=== PATIENT | male | born 1990 | race American Indian/Alaskan Native ===

== ENCOUNTER 2021-05-01 00:57 | Emergency (ER) | payer SELFPAY ==
--- NOTE | 2021-05-01 01:05 | Emergency Department Report ---
<JAJA PEGUERO - Last Filed: 05/01/21 06:46> ED Altered Mental Status HPI - General Stated Complaint: SEVERE ANXIETY Time Seen by Provider: 05/01/21 00:59 - Related Data Allergies Allergy/AdvReac Type Severity Reaction Status Date / Time egg Allergy Unknown Verified 05/01/21 01:06 ED Course - Reevaluation(s) Reevaluation #1: 05/01/21 06:46 Patient now is alert, oriented x3 in no acute distress. Patient is playing with his iPhone. - Lab Data Result diagrams: 05/01/21 01:12 05/01/21 01:12 ED Disposition Clinical Impression: Acute drug intoxication Disposition: HOME / SELF CARE / HOMELESS Condition: Stable Instructions: Substance Use Disorder Referrals: BORIS KNAPP MD [Staff Physician] - 3-5 Days <GRIFFIN ROSADO - Last Filed: 05/02/21 06:30> ED Altered Mental Status HPI - General PUI?: No Source: patient, EMS Limitations: Altered Mental Status - History of Present Illness Initial Comments: CC: "I feel like my heart is going to beat out of my chest." HPI: 30-year-old male with history of asthma, anxiety presents with chest pain. Patient admits to drinking alcohol and smoking marijuana today. He also took "a little blue pill". Patient's heart rate ranged from 100-160 per EMS. Patient states that he sees his heart attempting to come out of his chest. He is trying to hold his heart down. Complaint: altered mental status, other (Anxious paranoid delusional) -: This evening Severity: severe Context: alcohol abuse, drug abuse Associated Symptoms: other (Chest pain palpitations) ED Review of Systems ROS: Stated complaint: SEVERE ANXIETY Other details as noted in HPI Comment: Unobtainable due to pts medical conditions (Altered mental status) ED Past Medical Hx - Past Medical History Previous Medical History?: Yes Hx Psychiatric Treatment: Yes (Anxiety) Hx Asthma: Yes - Social History Substance Use Type: Alcohol, Marijuana ED Physical Exam - General General appearance: alert, anxious, other (Agitated anxious jerking movement hyperverbal) - Head Head exam: Present: atraumatic, normocephalic - Eye Eye exam: Present: normal appearance - ENT ENT exam: Present: mucous membranes moist - Neck Neck exam: Present: normal inspection, full ROM - Respiratory Respiratory exam: Present: normal lung sounds bilaterally. Absent: respiratory distress, wheezes, rales, rhonchi - Cardiovascular Cardiovascular Exam: Present: normal rhythm, tachycardia, normal heart sounds. Absent: systolic murmur, diastolic murmur, rubs, gallop - GI/Abdominal GI/Abdominal exam: Present: soft, normal bowel sounds. Absent: distended, tenderness, guarding, rebound - Rectal Rectal exam: Present: deferred - Extremities Exam Extremities exam: Present: normal inspection - Neurological Exam Neurological exam: Present: alert, other (Oriented to name and place) - Psychiatric Psychiatric exam: Present: agitated, anxious, other (Hyperverbal paranoid asking the paramedics to hold down his chest) - Skin Skin exam: Present: warm, dry, intact, normal color. Absent: rash ED Course Vital Signs 05/01/21 05/01/21 05/01/21 01:04 01:40 01:46 Temperature 98.1 F Pulse Rate 131 H 123 H 123 H Respiratory 22 22 17 Rate Blood Pressure Blood Pressure 159/104 [Right] O2 Sat by Pulse 99 93 100 Oximetry 05/01/21 05/01/21 05/01/21 02:00 02:16 02:30 Temperature Pulse Rate 116 H 95 H 95 H Respiratory 35 H 16 16 Rate Blood Pressure Blood Pressure [Right] O2 Sat by Pulse 100 100 Oximetry 05/01/21 05/01/21 05/01/21 02:46 03:00 03:16 Temperature Pulse Rate 95 H 97 H 102 H Respiratory 17 17 16 Rate Blood Pressure 130/88 130/88 Blood Pressure [Right] O2 Sat by Pulse 100 100 100 Oximetry 05/01/21 05/01/21 05/01/21 03:30 03:46 04:00 Temperature Pulse Rate Respiratory 15 14 15 Rate Blood Pressure 130/88 130/88 130/88 Blood Pressure [Right] O2 Sat by Pulse 100 100 100 Oximetry 05/01/21 05/01/21 05/01/21 04:16 04:30 04:46 Temperature Pulse Rate Respiratory 14 14 13 Rate Blood Pressure 130/88 130/88 130/88 Blood Pressure [Right] O2 Sat by Pulse 99 99 99 Oximetry 05/01/21 05/01/21 05/01/21 05:00 05:16 05:30 Temperature Pulse Rate Respiratory 13 14 15 Rate Blood Pressure 130/88 130/88 130/88 Blood Pressure [Right] O2 Sat by Pulse 100 100 99 Oximetry 05/01/21 05/01/21 05:46 07:19 Temperature Pulse Rate Respiratory 13 Rate Blood Pressure 130/88 Blood Pressure [Right] O2 Sat by Pulse 99 99 Oximetry - Lab Data Result diagrams: 05/01/21 01:12 05/01/21 01:12 Lab Results 05/01/21 05/01/21 05/01/21 Range/Units 01:12 01:12 01:12 WBC 5.8 (4.5-11.0) K/mm3 RBC 4.75 (3.65-5.03) M/mm3 Hgb 14.8 (11.8-15.2) gm/dl Hct 45.2 (35.5-45.6) % MCV 95 H (84-94) fl MCH 31 (28-32) pg MCHC 33 (32-34) % RDW 14.5 (13.2-15.2) % Plt Count 365 (140-440) K/mm3 Lymph % (Auto) 27.1 (13.4-35.0) % Cowley % (Auto) 10.8 H (0.0-7.3) % Eos % (Auto) 1.8 (0.0-4.3) % Baso % (Auto) 0.9 (0.0-1.8) % Lymph # (Auto) 1.6 (1.2-5.4) K/mm3 Cowley # (Auto) 0.6 (0.0-0.8) K/mm3 Eos # (Auto) 0.1 (0.0-0.4) K/mm3 Baso # (Auto) 0.1 (0.0-0.1) K/mm3 Seg Neutrophils % 59.4 (40.0-70.0) % Seg Neutrophils # 3.4 (1.8-7.7) K/mm3 Sodium 139 (137-145) mmol/L Potassium 3.7 (3.6-5.0) mmol/L Chloride 98.9 (98-107) mmol/L Carbon Dioxide 21 L (22-30) mmol/L Anion Gap 23 mmol/L BUN 7 L (9-20) mg/dL Creatinine 1.1 (0.8-1.3) mg/dL Estimated GFR > 60 ml/min BUN/Creatinine Ratio 6 % Glucose 92 (75-100) mg/dL Calcium 9.5 (8.4-10.2) mg/dL Total Bilirubin 1.30 H (0.1-1.2) mg/dL AST 21 (5-40) units/L ALT 21 (7-56) units/L Alkaline Phosphatase 81 (35-129) units/L Troponin T (0.00-0.029) ng/mL Total Protein 8.2 (6.3-8.2) g/dL Albumin 5.1 H (3.9-5) g/dL Albumin/Globulin Ratio 1.6 % Urine Color (Yellow) Urine Turbidity (Clear) Urine pH (5.0-7.0) Ur Specific Williams (1.003-1.030) Urine Protein (Negative) mg/dL Urine Glucose (UA) (Negative) mg/dL Urine Ketones (Negative) mg/dL Urine Blood (Negative) Urine Nitrite (Negative) Urine Bilirubin (Negative) Urine Urobilinogen (<2.0) mg/dL Ur Leukocyte Esterase (Negative) Urine WBC (Auto) (0.0-6.0) /HPF Urine RBC (Auto) (0.0-6.0) /HPF Urine Mucus /HPF Salicylates < 0.3 L (2.8-20.0) mg/dL Urine Opiates Screen Urine Methadone Screen Acetaminophen (10.0-30.0) ug/mL Ur Barbiturates Screen Ur Phencyclidine Scrn Ur Amphetamines Screen U Benzodiazepines Scrn Urine Cocaine Screen U Marijuana (THC) Screen Drugs of Abuse Note Plasma/Serum Alcohol (0-0.07) % 05/01/21 05/01/21 05/01/21 Range/Units 01:12 01:12 01:12 WBC (4.5-11.0) K/mm3 RBC (3.65-5.03) M/mm3 Hgb (11.8-15.2) gm/dl Hct (35.5-45.6) % MCV (84-94) fl MCH (28-32) pg MCHC (32-34) % RDW (13.2-15.2) % Plt Count (140-440) K/mm3 Lymph % (Auto) (13.4-35.0) % Cowley % (Auto) (0.0-7.3) % Eos % (Auto) (0.0-4.3) % Baso % (Auto) (0.0-1.8) % Lymph # (Auto) (1.2-5.4) K/mm3 Cowley # (Auto) (0.0-0.8) K/mm3 Eos # (Auto) (0.0-0.4) K/mm3 Baso # (Auto) (0.0-0.1) K/mm3 Seg Neutrophils % (40.0-70.0) % Seg Neutrophils # (1.8-7.7) K/mm3 Sodium (137-145) mmol/L Potassium (3.6-5.0) mmol/L Chloride (98-107) mmol/L Carbon Dioxide (22-30) mmol/L Anion Gap mmol/L BUN (9-20) mg/dL Creatinine (0.8-1.3) mg/dL Estimated GFR ml/min BUN/Creatinine Ratio % Glucose (75-100) mg/dL Calcium (8.4-10.2) mg/dL Total Bilirubin (0.1-1.2) mg/dL AST (5-40) units/L ALT (7-56) units/L Alkaline Phosphatase (35-129) units/L Troponin T < 0.010 (0.00-0.029) ng/mL Total Protein (6.3-8.2) g/dL Albumin (3.9-5) g/dL Albumin/Globulin Ratio % Urine Color (Yellow) Urine Turbidity (Clear) Urine pH (5.0-7.0) Ur Specific Williams (1.003-1.030) Urine Protein (Negative) mg/dL Urine Glucose (UA) (Negative) mg/dL Urine Ketones (Negative) mg/dL Urine Blood (Negative) Urine Nitrite (Negative) Urine Bilirubin (Negative) Urine Urobilinogen (<2.0) mg/dL Ur Leukocyte Esterase (Negative) Urine WBC (Auto) (0.0-6.0) /HPF Urine RBC (Auto) (0.0-6.0) /HPF Urine Mucus /HPF Salicylates (2.8-20.0) mg/dL Urine Opiates Screen Urine Methadone Screen Acetaminophen 5.0 L (10.0-30.0) ug/mL Ur Barbiturates Screen Ur Phencyclidine Scrn Ur Amphetamines Screen U Benzodiazepines Scrn Urine Cocaine Screen U Marijuana (THC) Screen Drugs of Abuse Note Plasma/Serum Alcohol < 0.01 (0-0.07) % 05/01/21 05/01/21 Range/Units 08:13 08:13 WBC (4.5-11.0) K/mm3 RBC (3.65-5.03) M/mm3 Hgb (11.8-15.2) gm/dl Hct (35.5-45.6) % MCV (84-94) fl MCH (28-32) pg MCHC (32-34) % RDW (13.2-15.2) % Plt Count (140-440) K/mm3 Lymph % (Auto) (13.4-35.0) % Cowley % (Auto) (0.0-7.3) % Eos % (Auto) (0.0-4.3) % Baso % (Auto) (0.0-1.8) % Lymph # (Auto) (1.2-5.4) K/mm3 Cowley # (Auto) (0.0-0.8) K/mm3 Eos # (Auto) (0.0-0.4) K/mm3 Baso # (Auto) (0.0-0.1) K/mm3 Seg Neutrophils % (40.0-70.0) % Seg Neutrophils # (1.8-7.7) K/mm3 Sodium (137-145) mmol/L Potassium (3.6-5.0) mmol/L Chloride (98-107) mmol/L Carbon Dioxide (22-30) mmol/L Anion Gap mmol/L BUN (9-20) mg/dL Creatinine (0.8-1.3) mg/dL Estimated GFR ml/min BUN/Creatinine Ratio % Glucose (75-100) mg/dL Calcium (8.4-10.2) mg/dL Total Bilirubin (0.1-1.2) mg/dL AST (5-40) units/L ALT (7-56) units/L Alkaline Phosphatase (35-129) units/L Troponin T (0.00-0.029) ng/mL Total Protein (6.3-8.2) g/dL Albumin (3.9-5) g/dL Albumin/Globulin Ratio % Urine Color Yellow (Yellow) Urine Turbidity Clear (Clear) Urine pH 5.0 (5.0-7.0) Ur Specific Williams 1.020 (1.003-1.030) Urine Protein 30 mg/dl (Negative) mg/dL Urine Glucose (UA) Neg (Negative) mg/dL Urine Ketones 20 (Negative) mg/dL Urine Blood Neg (Negative) Urine Nitrite Neg (Negative) Urine Bilirubin Neg (Negative) Urine Urobilinogen 2.0 (<2.0) mg/dL Ur Leukocyte Esterase Neg (Negative) Urine WBC (Auto) 9.0 H (0.0-6.0) /HPF Urine RBC (Auto) 5.0 (0.0-6.0) /HPF Urine Mucus Few /HPF Salicylates (2.8-20.0) mg/dL Urine Opiates Screen Negative Urine Methadone Screen Negative Acetaminophen (10.0-30.0) ug/mL Ur Barbiturates Screen Negative Ur Phencyclidine Scrn Negative Ur Amphetamines Screen Positive U Benzodiazepines Scrn Negative Urine Cocaine Screen Positive U Marijuana (THC) Screen Positive Drugs of Abuse Note Disclamer Plasma/Serum Alcohol (0-0.07) % - EKG Data -: EKG Interpreted by Mo EKG shows normal: sinus rhythm, axis, intervals, QRS complexes, ST-T waves Rate: tachycardia 05/01/21 01:25 EKG obtained 0110 EKG interpreted by mn Sinus tachycardia rate 120 bpm normal axis normal intervals no ST-T sign ischemia - Medical Decision Making Acute intoxication, patient presented with paranoia agitation anxiety. Admitted to multiple ingestions including smoking a substance and taking a "blue pill". After 2 mg of lorazepam he is now resting comfortably. Tachycardia has resol rhina. Anticipate discharge once he is awake. My colleague will arrange discharge disposition once he is awake and ambulatory. CBC chemistry serum toxicology all unremarkable patient received 2 mg IV lorazepam normal saline 1 L bolus Critical Care Time: Yes Critical care time in (mins) excluding proc time.: 40 Critical care attestation.: If time is entered above; I have spent that time in minutes in the direct care of this critically ill patient, excluding procedure time. 40 minutes of critical care time excluding procedures were used in the care of the patient. I came immediately to the bedside upon patient's arrival. I obtained history from EMS at the bedside. I discussed treatment plan with the nursing team members. I reviewed electronic record. I was concerned for arrhythmia with severe tachycardia. I was concerned for potential self-harm with patient's impulsive. ED Disposition Is pt being admited?: No Does the pt Need Aspirin: No
[2021-05-01] MEDS ORDERED: SODIUM CHLORIDE 0.9% 1000 ML 1,000 ML ONE (01:27)
[2021-05-01 01:38] LABS: Basophils # (Auto) 0.1 K/mm3 (0.0-0.1); Basophils % (Auto) 0.9 % (0.0-1.8); Eosinophils # (Auto) 0.1 K/mm3 (0.0-0.4); Eosinophils % (Auto) 1.8 % (0.0-4.3); Hematocrit 45.2 % (35.5-45.6); Hemoglobin 14.8 gm/dl (11.8-15.2); Lymphocytes # (Auto) 1.6 K/mm3 (1.2-5.4); Lymphocytes % (Auto) 27.1 % (13.4-35.0); Mean Corpuscular HGB Conc 33 % (32-34); Mean Corpuscular Volume 95 fl (84-94); Monocytes # (Auto) 0.6 K/mm3 (0.0-0.8); Monocytes % (Auto) 10.8 % (0.0-7.3); Platelet Count 365 K/mm3 (140-440); Red Blood Count 4.75 M/mm3 (3.65-5.03); Red Cell Distribution Width 14.5 % (13.2-15.2)
[2021-05-01] MEDS ORDERED: SODIUM CHLORIDE 0.9% 1000 ML 1,000 ML IV ONE (01:40)
[2021-05-01] MEDS ORDERED: LORazepam 2 MG/ML VIAL IV ONE (01:43)
[2021-05-01 01:49] LABS: Alanine Aminotransferase 21 units/L (7-56); Albumin 5.1 g/dL (3.9-5); BUN/Creatinine Ratio 6; Blood Urea Nitrogen 7 mg/dL (9-20); Calcium 9.5 mg/dL (8.4-10.2); Hemolysis Index 40
[2021-05-01 05:58] VITALS: BP 130/88
[2021-05-01 09:06] LABS: Bilirubin,Urine NEG (Negative); Blood,Urine NEG (Negative); Color,Urine Yellow (Yellow); Mucus,Urine FEW /HPF
[2021-05-01 09:10] LABS: Benzodiazepines Screen,Urine Negative; Methadone Screen,Urine Negative; Opiate Screen,Urine Negative
[2021-05-01 09:46] LABS: Amphetamine Screen,Urine Positive; Cannabinoid Screen,Urine Positive; Cocaine Screen,Urine Positive
--- NOTE | 2021-05-03 18:56 | Electrocardiograph Report ---
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
== END 2021-05-01 10:46 | disposition home or self-care (01) ==
LOC: ED 00:57
DX: F12.929 Cannabis use, unspecified with intoxication, unspecified (principal); F41.9 Anxiety disorder, unspecified; R07.89 Other chest pain; J45.909 Unspecified asthma, uncomplicated; Z72.89 Other problems related to lifestyle; Z79.899 Other long term (current) drug therapy
CPT/HCPCS: 36415; 80053; 80307; 81001; 84484; 85025; 87086; 93005; 96361; 96374; 99284; J2060; J7030; 80320; G0480

== ENCOUNTER 2021-06-18 07:25 | Emergency (ER) | payer SELFPAY ==
[2021-06-18 07:33] VITALS: BP 148/98
--- NOTE | 2021-06-18 08:22 | Emergency Department Report ---
ED Chest Pain HPI - General Chief Complaint: Arrhythmia/Palpitations Stated Complaint: HEART COMPLICATIONS Source: patient Mode of arrival: Ambulatory Limitations: No Limitations - History of Present Illness Initial Comments: 30-year-old -[place] male Severity scale (0 -10): 8 - Related Data Allergies Allergy/AdvReac Type Severity Reaction Status Date / Time egg Allergy Unknown Verified 05/01/21 01:06 ED Review of Systems ROS: Stated complaint: HEART COMPLICATIONS Other details as noted in HPI ED Past Medical Hx - Past Medical History Hx Psychiatric Treatment: Yes (Anxiety) Hx Asthma: Yes - Surgical History Additional Surgical History: nasal - Social History Substance Use Type: Alcohol, Marijuana ED Physical Exam - General Limitations: No Limitations ED Course Vital Signs 06/18/21 07:29 Temperature 98.2 F Pulse Rate 105 H Respiratory 20 Rate Blood Pressure 148/98 [Right] O2 Sat by Pulse 95 Oximetry Critical care attestation.: If time is entered above; I have spent that time in minutes in the direct care of this critically ill patient, excluding procedure time. ED Disposition Condition: Stable
--- NOTE | 2021-06-18 12:54 | Electrocardiograph Report ---
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
== END 2021-06-18 09:05 | disposition left against medical advice (07) ==
LOC: ED 07:25
DX: R07.89 Other chest pain (principal); R06.02 Shortness of breath; F41.9 Anxiety disorder, unspecified
CPT/HCPCS: 93005; 99282

== ENCOUNTER 2021-06-21 04:28 | Emergency (ER) | payer MEDICARE, MEDICAID ==
--- NOTE | 2021-06-21 08:09 | XRay Report ---
CHEST PA AND LATERAL VIEWS INDICATION: chest pain. COMPARISON: None. FINDINGS: Support devices: None. Heart: Within normal limits. Lungs/Pleura: No acute pulmonary or pleural findings. IMPRESSION: 1. No acute findings. Signer Name: Donovan Owusu MD Signed: 06/21/2021 8:05 AM Workstation Name: [id number]
--- NOTE | 2021-06-21 08:24 | Emergency Department Report ---
ED General Adult HPI - General Chief complaint: Psych Stated complaint: HEART ISSUES Time Seen by Provider: 06/21/21 07:44 Source: patient Mode of arrival: Ambulatory Limitations: No Limitations - History of Present Illness Initial comments: 30-year-old -Ug[place] male patient presents with complaints of crawling feeling in his chest for the past few days. Patient admits to substance abuse, however were not disclosed what substance he has used. He denies any chest pain, shortness of breath, cough, hemoptysis, or fever/chills/sweats. Patient reports that he is to be admitted to a snf house today and as needed to get medically cleared. No past medical history per patient. - Related Data Previous Rx's Medication Instructions Recorded Last Taken Type Naproxen 500 mg PO BID PRN #20 tablet 06/21/21 Unknown Rx Allergies Allergy/AdvReac Type Severity Reaction Status Date / Time egg Allergy Unknown Verified 06/21/21 04:50 ED Review of Systems ROS: Stated complaint: HEART ISSUES Other details as noted in HPI Constitutional: denies: chills, diaphoresis, fever, malaise, weakness Respiratory: denies: cough, shortness of breath Cardiovascular: as per HPI. denies: palpitations Gastrointestinal: denies: abdominal pain, nausea Skin: denies: rash Neurological: denies: numbness, paresthesias ED Past Medical Hx - Past Medical History Hx Psychiatric Treatment: Yes (Anxiety) Hx Asthma: Yes - Surgical History Additional Surgical History: nasal - Social History Substance Use Type: Alcohol, Marijuana - Medications Home Medications: Home Medications Medication Instructions Recorded Confirmed Last Taken Type Naproxen 500 mg PO BID PRN #20 tablet 06/21/21 Unknown Rx ED Physical Exam - General Limitations: No Limitations General appearance: alert, in no apparent distress - Head Head exam: Present: atraumatic, normocephalic - Eye Eye exam: Present: normal appearance - Neck Neck exam: Present: normal inspection - Respiratory Respiratory exam: Present: normal lung sounds bilaterally. Absent: respiratory distress, chest wall tenderness - Cardiovascular Cardiovascular Exam: Present: regular rate, normal rhythm - Extremities Exam Extremities exam: Absent: calf tenderness (no swelling noted) - Neurological Exam Neurological exam: Present: alert, oriented X3, normal gait - Psychiatric Psychiatric exam: Present: normal affect, normal mood ED Course Vital Signs 06/21/21 06/21/21 06/21/21 04:50 08:49 08:52 Temperature 98.6 F 98.0 F Pulse Rate 103 H 88 Respiratory 18 17 17 Rate Blood Pressure 129/88 133/72 [Right] O2 Sat by Pulse 100 96 97 Oximetry 06/21/21 09:49 Temperature Pulse Rate 87 Respiratory 18 Rate Blood Pressure 133/79 [Right] O2 Sat by Pulse 100 Oximetry ED Medical Decision Making - Lab Data Result diagrams: 06/21/21 08:15 06/21/21 08:15 Lab Results 06/21/21 06/21/21 06/21/21 Range/Units 08:15 08:15 08:15 WBC 5.7 (4.5-11.0) K/mm3 RBC 4.76 (3.65-5.03) M/mm3 Hgb 15.0 (11.8-15.2) gm/dl Hct 47.1 H (35.5-45.6) % MCV 99 H (84-94) fl MCH 32 (28-32) pg MCHC 32 (32-34) % RDW 14.6 (13.2-15.2) % Plt Count 371 (140-440) K/mm3 Lymph % (Auto) 33.1 (13.4-35.0) % Sutter % (Auto) 8.8 H (0.0-7.3) % Eos % (Auto) 2.7 (0.0-4.3) % Baso % (Auto) 0.6 (0.0-1.8) % Lymph # (Auto) 1.9 (1.2-5.4) K/mm3 Sutter # (Auto) 0.5 (0.0-0.8) K/mm3 Eos # (Auto) 0.2 (0.0-0.4) K/mm3 Baso # (Auto) 0.0 (0.0-0.1) K/mm3 Seg Neutrophils % 54.8 (40.0-70.0) % Seg Neutrophils # 3.1 (1.8-7.7) K/mm3 Sodium 138 (137-145) mmol/L Potassium 4.0 (3.6-5.0) mmol/L Chloride 100.6 (98-107) mmol/L Carbon Dioxide 23 (22-30) mmol/L Anion Gap 18 mmol/L BUN 8 L (9-20) mg/dL Creatinine 0.9 (0.8-1.3) mg/dL Estimated GFR > 60 ml/min BUN/Creatinine Ratio 9 % Glucose 84 (75-100) mg/dL Calcium 9.5 (8.4-10.2) mg/dL Total Bilirubin 0.80 (0.1-1.2) mg/dL AST 19 (5-40) units/L ALT 21 (7-56) units/L Alkaline Phosphatase 79 (35-129) units/L Troponin T < 0.010 (0.00-0.029) ng/mL Total Protein 7.6 (6.3-8.2) g/dL Albumin 5.1 H (3.9-5) g/dL Albumin/Globulin Ratio 2.0 % Urine Color (Yellow) Urine Turbidity (Clear) Urine pH (5.0-7.0) Ur Specific [place] (1.003-1.030) Urine Protein (Negative) mg/dL Urine Glucose (UA) (Negative) mg/dL Urine Ketones (Negative) mg/dL Urine Blood (Negative) Urine Nitrite (Negative) Urine Bilirubin (Negative) Urine Urobilinogen (<2.0) mg/dL Ur Leukocyte Esterase (Negative) Urine WBC (Auto) (0.0-6.0) /HPF Urine RBC (Auto) (0.0-6.0) /HPF U Epithel Cells (Auto) (0-13.0) /HPF Urine Mucus /HPF Salicylates (2.8-20.0) mg/dL Urine Opiates Screen Urine Methadone Screen Acetaminophen (10.0-30.0) ug/mL Ur Barbiturates Screen Ur Phencyclidine Scrn Ur Amphetamines Screen U Benzodiazepines Scrn Urine Cocaine Screen U Marijuana (THC) Screen Drugs of Abuse Note Plasma/Serum Alcohol (0-0.07) % 06/21/21 06/21/21 06/21/21 Range/Units 08:15 08:15 08:15 WBC (4.5-11.0) K/mm3 RBC (3.65-5.03) M/mm3 Hgb (11.8-15.2) gm/dl Hct (35.5-45.6) % MCV (84-94) fl MCH (28-32) pg MCHC (32-34) % RDW (13.2-15.2) % Plt Count (140-440) K/mm3 Lymph % (Auto) (13.4-35.0) % Sutter % (Auto) (0.0-7.3) % Eos % (Auto) (0.0-4.3) % Baso % (Auto) (0.0-1.8) % Lymph # (Auto) (1.2-5.4) K/mm3 Sutter # (Auto) (0.0-0.8) K/mm3 Eos # (Auto) (0.0-0.4) K/mm3 Baso # (Auto) (0.0-0.1) K/mm3 Seg Neutrophils % (40.0-70.0) % Seg Neutrophils # (1.8-7.7) K/mm3 Sodium (137-145) mmol/L Potassium (3.6-5.0) mmol/L Chloride (98-107) mmol/L Carbon Dioxide (22-30) mmol/L Anion Gap mmol/L BUN (9-20) mg/dL Creatinine (0.8-1.3) mg/dL Estimated GFR ml/min BUN/Creatinine Ratio % Glucose (75-100) mg/dL Calcium (8.4-10.2) mg/dL Total Bilirubin (0.1-1.2) mg/dL AST (5-40) units/L ALT (7-56) units/L Alkaline Phosphatase (35-129) units/L Troponin T (0.00-0.029) ng/mL Total Protein (6.3-8.2) g/dL Albumin (3.9-5) g/dL Albumin/Globulin Ratio % Urine Color (Yellow) Urine Turbidity (Clear) Urine pH (5.0-7.0) Ur Specific [place] (1.003-1.030) Urine Protein (Negative) mg/dL Urine Glucose (UA) (Negative) mg/dL Urine Ketones (Negative) mg/dL Urine Blood (Negative) Urine Nitrite (Negative) Urine Bilirubin (Negative) Urine Urobilinogen (<2.0) mg/dL Ur Leukocyte Esterase (Negative) Urine WBC (Auto) (0.0-6.0) /HPF Urine RBC (Auto) (0.0-6.0) /HPF U Epithel Cells (Auto) (0-13.0) /HPF Urine Mucus /HPF Salicylates < 0.3 L (2.8-20.0) mg/dL Urine Opiates Screen Urine Methadone Screen Acetaminophen 5.0 L (10.0-30.0) ug/mL Ur Barbiturates Screen Ur Phencyclidine Scrn Ur Amphetamines Screen U Benzodiazepines Scrn Urine Cocaine Screen U Marijuana (THC) Screen Drugs of Abuse Note Plasma/Serum Alcohol < 0.01 (0-0.07) % 06/21/21 06/21/21 Range/Units 08:21 08:21 WBC (4.5-11.0) K/mm3 RBC (3.65-5.03) M/mm3 Hgb (11.8-15.2) gm/dl Hct (35.5-45.6) % MCV (84-94) fl MCH (28-32) pg MCHC (32-34) % RDW (13.2-15.2) % Plt Count (140-440) K/mm3 Lymph % (Auto) (13.4-35.0) % Sutter % (Auto) (0.0-7.3) % Eos % (Auto) (0.0-4.3) % Baso % (Auto) (0.0-1.8) % Lymph # (Auto) (1.2-5.4) K/mm3 Sutter # (Auto) (0.0-0.8) K/mm3 Eos # (Auto) (0.0-0.4) K/mm3 Baso # (Auto) (0.0-0.1) K/mm3 Seg Neutrophils % (40.0-70.0) % Seg Neutrophils # (1.8-7.7) K/mm3 Sodium (137-145) mmol/L Potassium (3.6-5.0) mmol/L Chloride (98-107) mmol/L Carbon Dioxide (22-30) mmol/L Anion Gap mmol/L BUN (9-20) mg/dL Creatinine (0.8-1.3) mg/dL Estimated GFR ml/min BUN/Creatinine Ratio % Glucose (75-100) mg/dL Calcium (8.4-10.2) mg/dL Total Bilirubin (0.1-1.2) mg/dL AST (5-40) units/L ALT (7-56) units/L Alkaline Phosphatase (35-129) units/L Troponin T (0.00-0.029) ng/mL Total Protein (6.3-8.2) g/dL Albumin (3.9-5) g/dL Albumin/Globulin Ratio % Urine Color Yellow (Yellow) Urine Turbidity Clear (Clear) Urine pH 5.0 (5.0-7.0) Ur Specific [place] 1.017 (1.003-1.030) Urine Protein <15 mg/dl (Negative) mg/dL Urine Glucose (UA) Neg (Negative) mg/dL Urine Ketones Tr (Negative) mg/dL Urine Blood Mod (Negative) Urine Nitrite Neg (Negative) Urine Bilirubin Neg (Negative) Urine Urobilinogen < 2.0 (<2.0) mg/dL Ur Leukocyte Esterase Neg (Negative) Urine WBC (Auto) 4.0 (0.0-6.0) /HPF Urine RBC (Auto) 2.0 (0.0-6.0) /HPF U Epithel Cells (Auto) < 1.0 (0-13.0) /HPF Urine Mucus Few /HPF Salicylates (2.8-20.0) mg/dL Urine Opiates Screen Negative Urine Methadone Screen Negative Acetaminophen (10.0-30.0) ug/mL Ur Barbiturates Screen Negative Ur Phencyclidine Scrn Negative Ur Amphetamines Screen Positive U Benzodiazepines Scrn Negative Urine Cocaine Screen Negative U Marijuana (THC) Screen Positive Drugs of Abuse Note Disclamer Plasma/Serum Alcohol (0-0.07) % - EKG Data EKG shows normal: sinus rhythm Rate: normal - EKG Data Interpretation: nonspecific ST-T wave manjula, other - Radiology Data Radiology results: report reviewed EST PA AND LATERAL VIEWS INDICATION: chest pain. COMPARISON: None. FINDINGS: Support devices: None. Heart: Within normal limits. Lungs/Pleura: No acute pulmonary or pleural findings. IMPRESSION: 1. No acute findings. - Medical Decision Making 30-year-old -Ugand[place] male patient presents with complaints of crawling feeling in his chest for the past few days. Patient admits to substance abuse, however were not disclosed what substance he has used. He denies any chest pain, shortness of breath, cough, hemoptysis, or fever/chills/sweats. Patient reports that he is to be admitted to a snf house today and as needed to get medically cleared. No past medical history per patient. +methamphetamines noted on drug screen. No other acute abnormalities noted on labs, CXR, or ekg. Pt is well appearing and stable for d/c home. He is medically cleared for admission for psychiatric facility. Pt to f/u with PCP in 5 days. Strict return precautions discussed in detail with pt who verbalizes understanding. Critical care attestation.: If time is entered above; I have spent that time in minutes in the direct care of this critically ill patient, excluding procedure time. ED Disposition Clinical Impression: Medical clearance for psychiatric admission, Other chest pain Disposition: HOME / SELF CARE / HOMELESS Is pt being admited?: No Condition: Stable Instructions: Nonspecific Chest Pain, Adult, [id number], Chest Wall Pain Additional Instructions: You are medically clear for admission to your facility Prescriptions: Naproxen 500 mg PO BID PRN #20 tablet PRN Reason: pain Referrals: [facility] [Provider Group] - 3-5 Days [facility], [Primary Care Provider] - 3-5 Days
[2021-06-21 08:48] LABS: Basophils % (Auto) 0.6 % (0.0-1.8); Eosinophils # (Auto) 0.2 K/mm3 (0.0-0.4); Eosinophils % (Auto) 2.7 % (0.0-4.3); Hematocrit 47.1 % (35.5-45.6); Lymphocytes # (Auto) 1.9 K/mm3 (1.2-5.4); Lymphocytes % (Auto) 33.1 % (13.4-35.0); Mean Corpuscular HGB Conc 32 % (32-34); Mean Corpuscular Volume 99 fl (84-94); Monocytes # (Auto) 0.5 K/mm3 (0.0-0.8); Monocytes % (Auto) 8.8 % (0.0-7.3); Platelet Count 371 K/mm3 (140-440); Red Blood Count 4.76 M/mm3 (3.65-5.03); Red Cell Distribution Width 14.6 % (13.2-15.2)
[2021-06-21 08:57] LABS: Benzodiazepines Screen,Urine Negative; Cocaine Screen,Urine Negative; Methadone Screen,Urine Negative; Opiate Screen,Urine Negative
[2021-06-21 08:58] LABS: Alanine Aminotransferase 21 units/L (7-56); Albumin 5.1 g/dL (3.9-5); BUN/Creatinine Ratio 9; Blood Urea Nitrogen 8 mg/dL (9-20); Calcium 9.5 mg/dL (8.4-10.2); Hemolysis Index 23
[2021-06-21 09:12] LABS: Amphetamine Screen,Urine Positive; Bilirubin,Urine NEG (Negative); Blood,Urine MOD (Negative); Cannabinoid Screen,Urine Positive; Color,Urine Yellow (Yellow); Mucus,Urine FEW /HPF; Protein,Urine <15 mg/dL mg/dL (Negative); Urobilinogen,Urine < 2.0 mg/dL (<2.0)
[2021-06-21 09:49] VITALS: BP 133/79
--- NOTE | 2021-06-21 17:50 | Electrocardiograph Report ---
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
== END 2021-06-21 09:50 | disposition home or self-care (01) ==
LOC: ED 04:28
DX: Z13.30 Encounter for screening examination for mental health and behavioral disorders, unspecified (principal); R07.89 Other chest pain; Z91.012 Allergy to eggs; J45.909 Unspecified asthma, uncomplicated; F10.20 Alcohol dependence, uncomplicated; F12.90 Cannabis use, unspecified, uncomplicated
CPT/HCPCS: 36415; 71046; 80053; 80307; 80320; 81001; 84484; 85025; 93005; 99284; G0480

== ENCOUNTER 2021-06-22 23:25 | Emergency (ER) | payer MEDICARE ==
[2021-06-23 06:40] VITALS: BP 124/80
[2021-06-23] MEDS ORDERED: FAMOTIDINE 20 MG TAB PO ONE (08:27)
--- NOTE | 2021-06-23 08:29 | Emergency Department Report ---
ED General Adult HPI - General Chief complaint: Anxiety Stated complaint: muscles Time Seen by Provider: 06/23/21 08:18 Source: patient, RN notes reviewed, old records reviewed Mode of arrival: Ambulatory Limitations: No Limitations - History of Present Illness Initial comments: This patient is a 30-year-old gentleman. He is not known to myself previously. He reportedly has a history of anxiety, and recreational drug use. The patient presents to the ER today with a request of burning epigastric discomfort, and sensation that his heart has moved to the wrong side of his chest. He is not homicidal or suicidal. He denies travel, surgery, immobilization, leg pain and leg swelling. The patient reports that he moved here from [place] a few decades ago. He reports that he is from [facility]. He is also requesting for medication to help him sleep at night. When I initially walked into the room to evaluate the patient, he is sleeping on her stretcher, and he is in no acute distress. Patient recently had an extensive laboratory and radiographic work-up at this facility, including laboratory studies which were unremarkable, with the inclusion of multiple negative troponins, negative serum toxicology study, and positive urine drug screen. Patient also had EKGs which showed early repolarization, and high left ventricular voltage. The patient presented a few days ago for medical clearance. -: Gradual Consistency: constant Improves with: none Worsens with: none - Related Data Previous Rx's Medication Instructions Recorded Last Taken Type Naproxen 500 mg PO BID PRN #20 tablet 06/21/21 Unknown Rx Allergies Allergy/AdvReac Type Severity Reaction Status Date / Time egg Allergy Unknown Verified 06/23/21 06:40 ED Review of Systems ROS: Stated complaint: CHEST PAIN Other details as noted in HPI Constitutional: denies: fever Respiratory: denies: cough Cardiovascular: as per HPI. denies: syncope Gastrointestinal: denies: nausea, vomiting Musculoskeletal: back pain Neurological: denies: weakness Psychiatric: denies: homicidal thoughts, suicidal thoughts ED Past Medical Hx - Past Medical History Hx Psychiatric Treatment: Yes (Anxiety) Hx Asthma: Yes - Surgical History Additional Surgical History: nasal - Social History Substance Use Type: Alcohol, Marijuana - Medications Home Medications: Home Medications Medication Instructions Recorded Confirmed Last Taken Type Naproxen 500 mg PO BID PRN #20 tablet 06/21/21 Unknown Rx ED Physical Exam - General Limitations: No Limitations General appearance: alert, in no apparent distress - Head Head exam: Present: atraumatic, normocephalic - Eye Eye exam: Present: normal appearance, EOMI. Absent: nystagmus - ENT ENT exam: Present: normal exam, normal orophraynx, mucous membranes moist, normal external ear exam - Neck Neck exam: Present: normal inspection, full ROM. Absent: tenderness, meni ngismus - Respiratory Respiratory exam: Present: normal lung sounds bilaterally. Absent: respiratory distress, wheezes, rales, rhonchi, stridor, decreased breath sounds - Cardiovascular Cardiovascular Exam: Present: regular rate, normal rhythm, normal heart sounds. Absent: bradycardia, tachycardia, irregular rhythm, systolic murmur, diastolic murmur, rubs, gallop - GI/Abdominal GI/Abdominal exam: Present: soft. Absent: distended, tenderness, guarding, rebound, rigid, pulsatile mass - Rectal Rectal exam: Present: deferred - Extremities Exam Extremities exam: Present: normal inspection, full ROM, other (2+ pulses noted in the bilateral upper and lower extremities. There is no palpable cord. negative Homans sign. Muscular compartments are soft. The pelvis is stable.). Absent: pedal edema, calf tenderness - Back Exam Back exam: Present: normal inspection, full ROM. Absent: tenderness, CVA tenderness (R), CVA tenderness (L), paraspinal tenderness, vertebral tenderness - Neurological Exam Neurological exam: Present: alert, oriented X3, other (No facial droop. Tongue midline. Extraocular movements intact bilaterally. Facial sensation intact to light touch in V1, V2, V3 distribution bilaterally. 5 and a 5 strength in 4 extremities. Sensation intact to light touch in 4 extremities.). Absent: motor sensory deficit - Psychiatric Psychiatric exam: Present: anxious. Absent: homicidal ideation, suicidal ideation - Skin Skin exam: Present: warm, dry, intact, normal color. Absent: rash ED Course Vital Signs 06/23/21 03:48 Temperature 97.8 F Pulse Rate 60 Respiratory 18 Rate Blood Pressure 124/80 [Left] O2 Sat by Pulse 100 Oximetry ED Medical Decision Making - Lab Data Vital Signs 06/23/21 03:48 Temperature 97.8 F Pulse Rate 60 Respiratory 18 Rate Blood Pressure 124/80 [Left] O2 Sat by Pulse 100 Oximetry - EKG Data -: EKG Interpreted by Ny EKG shows normal: sinus rhythm Rate: normal - EKG Data 06/23/21 08:32 EKG interpreted from June 21, 2021 Sinus rhythm, 65 bpm, normal axis, normal P wave axis, high left ventricular voltage, early repolarization. Motion artifact. Abnormal EKG. Not a STEMI 06/23/21 08:48 EKG from today is interpreted at 08: 41 It is unchanged from prior EKGs. Sinus rhythm, rate 62 bpm. Normal axis, normal P wave axis. High left ventricular voltage. Not a STEMI. - Radiology Data Radiology results: pending, report reviewed, image reviewed [facility] [address] [place] [address] XRay Report Signed Patient: HOUSTON SÁNCHEZ MR# : [id number] : 1990 Acct:[id number] Age/Sex: 30 / M ADM Date: 06/21/21 Loc: ED Attending Dr: Ordering Physician: UZAIR MIDDLETON Date of Service: 06/21/21 Procedure(s): XR chest routine 2V Accession Number(s): [id number] cc: UZAIR MIDDLETON Fluoro Time In Minutes: CHEST PA AND LATERAL VIEWS INDICATION: chest pain. COMPARISON: None. FINDINGS: Support devices: None. Heart: Within normal limits. Lungs/Pleura: No acute pulmonary or pleural findings. IMPRESSION: 1. No acute findings. Signer Name: Donovan Owusu MD Signed: 06/21/2021 8:05 AM Workstation Name: [id number] Transcribed By: RONA Dictated By: Donovan Owusu MD Electronically Authenticated By: Donovan Owusu MD Signed Date/Time: 06/21/21804 DD/ 3 - Medical Decision Making Differential diagnosis, including but not limited to: Encounter for medical screening examination, encounter for behavioral health screening examination, history of chest pain, anxiety, mood disorder Assessment and plan: 30-year-old gentleman, who is clinically sober, but anxious and disorganized, with a GCS of 15, who is redirectable, not homicidal or suic idal, does not meet criteria for 1013 hold or involuntary hold. He recently had extensive laboratory and diagnostic work-up at this facility which was essentially unremarkable for emergent findings. On my initial assessment, the patient is sleeping comfortably on his stretcher, and he is not in any acute distress. His physical examination is unremarkable. He recently had a chest x- ray and laboratory studies which were unremarkable. Repeat EKG unchanged from prior. Patient is not currently tachycardic, tachypneic or hypoxic, he denies DVT and pulmonary embolism risk factors, he is low risk by Wells criteria for pulmonary embolism, and he is PERC negative. The patient does not appear to have an emergent medical or psychiatric condition at this time which requires further ER evaluation. He can follow-up with an outpatient physician. He can take [id number] Benadryl as needed for sleep if he requires, but, this patient was sleeping in stretcher when I evaluated him, so I doubt that he has a significant or pathologic sleep derangement at this time Critical care attestation.: If time is entered above; I have spent that time in minutes in the direct care of this critically ill patient, excluding procedure time. ED Disposition Clinical Impression: Encounter for medical screening examination, Encounter for behavioral health screening Disposition: HOME / SELF CARE / HOMELESS Is pt being admited?: No Does the pt Need Aspirin: No Condition: Good Additional Instructions: Patient may take [id number] Benadryl as needed to assist with going to sleep. The patient may take [id number] Pepcid and/or Tylenol or ibuprofen as needed for physical pain. Recommend the patient follow-up with a primary care doctor within the next month. Recommend that patient avoid consumption of recreational drugs. Recommend the patient follow-up with a mental health specialist within the next month. Please return to the emergency room right away with new pain, worsened pain, dmitri ration of pain, projectile vomiting, change in mental status, confusion, inability tolerate liquid feeds, new, worsened or different symptoms not present on the initial emergency room evaluation Referrals: [facility] [Outside] - 3-5 Days [facility] [Outside] - 3-5 Days
--- NOTE | 2021-06-23 13:33 | Electrocardiograph Report ---
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
== END 2021-06-23 09:05 | disposition home or self-care (01) ==
LOC: ED 23:25
DX: R10.13 Epigastric pain (principal); Z13.30 Encounter for screening examination for mental health and behavioral disorders, unspecified
CPT/HCPCS: 93005; 99282